=== PATIENT | male | born 1970 | race Caucasian/White ===

== ENCOUNTER 2016-03-06 12:54 | Emergency (ER) | payer OTHER ==
[~2016-03-06] VITALS: Ht 175.3 cm; Wt 79.5 kg
[~2016-03-06 12:54] MED LIST: ALBU2.5V4 INHALATION; DIF200 PO; PRE20 PO; ZIT250 PO
[2016-03-06 13:04] VITALS: BP 123/80; PULSE 76; RESP 16; O2SAT 97
--- NOTE | 2016-03-06 15:26 | ED.REPORT ---
HPI-General Illness Date of Service Mar 06, 2016 ED Provider: Heber Slater PA-C Tan is an otherwise healthy 45-year-old male presents with chief complaint of laceration. Patient states that he cut his left forearm on a piece of metal shower trim shortly before presentation. Pain is well- controlled with 100 mg of ibuprofen. He believes he is up-to-date on his tetanus shot. Denies bleeding or clotting disorders or any medical history. Uses no medications other than THC. Nursing Notes Stated Complaint: LACERATION ON RIGHT ARM Chief Complaint: Laceration Nursing Notes Reviewed: Yes Allergies: Coded Allergies: No Known Allergies (Verified , 02/11/05) Scheduled Azithromycin (Zithromax) 250 Mg Tablet 250 MG PO DAILY Fluconazole-Expunged Drug, Do Not Renew! (Diflucan-Expunged Drug, Do Not Renew! ) 200 Mg Tablet 200 MG PO HS Prednisone (PredniSONE) 20 Mg Tablet 60 MG PO DAILY Scheduled PRN Albuterol Neb Soln (Albuterol Neb Soln) 2.5 Mg/3 Ml Vial.neb 2.5 MG INHALATION Q4H PRN PRN For Cough General Time Seen by MD: 14:32 Chief Complaint Laceration Past Medical History Past Medical History None reported Past Surgical History None reported Smoking History Never Smoker Social History Alcohol Use: Denies alcohol use Review of Systems Negative unless stated otherwise in history of present illness Physical Exam General: Well appearing, well developed, well nourished, no acute distress. Head: Atraumatic, normocephalic. Eyes: No scleral icterus or injection. No discharge. Vision grossly intact. ENT: Voice clear, hearing grossly intact. Respiratory: Regular rate and rhythm. Breath sounds present, clear to auscultation and equal bilaterally. Cardiovascular: Regular rate and rhythm, without murmur, gallop or rub. No pedal edema. Gastrointestinal: Abdomen flat and non-tender without guarding or rebound. Bowel sounds normoactive. Skin: Warm and dry. 3 cm laceration through the dermis into the adipose tissue on anterior left forearm. No penetration to the muscle fascia, no foreign bodies. Neurological: Grossly nonfocal. Psychological: Alert and oriented. Speech appropriate, linear and logical. Behavior appropriate. Vital Signs Vital Signs Date Time Temp Pulse Resp B/P Pulse Ox O2 Delivery O2 Flow Rate FiO2 03/06/16 13:04 36.5 76 16 123/80 97 Initial VS: Reviewed, Vital signs normal Procedures Laceration Management Time: 23:43 Consent / Setup / Site Prep: Informed consent provided, Consent from patient , Hand hygiene observed, Stand sterile technique Wound Length: 3 cm Local Anesthesia: Lidocaine 1%, 4cc, 27g needle Wound Preparation: Normal saline Irrigation: 50 cc Foreign Body Explore / Removal: Explored for foreign body Repair Skin: Nylon (5-0) # Sutures - Skin: 8 Closure Layers: 1 Suture Technique: Running Post-Procedure / Complications: Antibiotic oint applied, Dressing applied, No complications, Condition improved, Tolerated procedure well, Patient stable Re-Eval/Medical Decision Med Decision/Clinical Course 45-year-old male with chief complaint of a laceration to his left forearm. She states that he perceive the injury from a sharp piece of metal shower trim shortly before presentation. Up-to-date on tetanus. Denies medical conditions including bleeding/clotting issues, blood thinners. Wound was cleaned by attack. Anesthetized with 5 mL 1% lidocaine. Closed with 8 running sutures of 5-0 Prolene. Well tolerated. No complications. Dressed, prior Instructions, primary care follow-up instructions and return precautions. Discharge & Departure Primary Impression: Laceration Disposition: Home Discharge Condition All VS Reviewed: Yes Condition: Stable Patient Instructions: Suture Care (ED) Additional Instructions: Evaluation for laceration in the emergency department. History and physical reveals a straightforward 3 cm laceration to the left forearm. We cleaned, sutured and dressed the wound in the emergency department. You stated that you are up-to-date on your tetanus shot. I recommend he keep the wound covered and dry for 24 hours after that he can remove the dressing, wash with soap and water , reapply antibiotic ointment and dress it again. Return to the emergency department or your primary care provider in about 10 days to have sutures removed. The patient for signs of infection including fever, increasing redness , swelling, pain or the appearance of pus. Return to emergency department for these or any other new or worsening symptoms. Referrals: Heber Verdin ND (PCP) EDSupervising Provider for APC: Fuad Woodson MD copies to: Heber Verdin ND, Seth PA-C Mar 06, 2016 15:26
== END 2016-03-06 15:35 | disposition home or self-care (01) ==
LOC: SED 12:54
DX: S51.812A Laceration without foreign body of left forearm, initial encounter (principal); W26.8XXA Contact with other sharp object(s), not elsewhere classified, initial encounter; Y93.89 Activity, other specified; Y92.89 Other specified places as the place of occurrence of the external cause; Y99.8 Other external cause status